=== PATIENT | male | born 1930 | race Caucasian/White ===

== ENCOUNTER → 2018-04-05 | Outpatient (CLI) | payer OTHER ==
[~2018-04-05] MED LIST: ACETAMINOPHEN325 M1; ADULT LOW DOSE81 MG PO; AMLODIPINE PO; ARIXTRA; ASPIR 8181 M1 PO; ASPIRIN EC325 M1; ATORVASTATIN CA40 MG PO; BRILINTA90 MG PO; CARVEDILOL3.125 MG PO; COLACE100 MG PO; DULCOLAX5 MG PO; FISH OIL 1,001000 M2 PO; FLOMAX PO; HYDROCHLOROTHIA25 M1 PO; LASIX 40 MG TAB40 M2 PO; LEVOTHYROXINE; LEVOTHYROXINE0.05 MG PO; LOPRESSOR25; LOPRESSOR50 PO; MACROBID 100 M100 M1 PO; NAPROSYN500 MG PO; NITROGLYCERIN0.4 MG SUBLING; NORVASC 2.5 MG2.5 M1 PO; NORVASC 2.5 MG2.5 MG PO; NORVASC 5 MG TAB5 MG PO; OXYIR 5 MG CAPSU5 M1; PERCOCET 5-3251 EACH; PLAVIX 75 MG TA75 M1 PO; POTASSIUM20 PO; PRILOSEC 20 MG20 MG PO; PRINIVIL20 MG PO; SYNTHROID75 MCG PO; TYLENOL325 MG PO; TYLOX 5-500 CA1 EACH PO; VITAMIN D1000 UNI2 PO; VITAMIN D31000 UNI2 PO
--- NOTE | 2018-04-05 12:27 | 2DMMODE ---
[place] [address] 2 D/M-MODE ECHOCARDIOGRAM Name: JOSUE NORRIS Room: [facility]#: [id number] Admission: 04/05/18 Attend Phys: Chavez Moise Discharge: Date of : 32 Date of Service: 04/05/18 1227 Report #: [id number] THIS REPORT FOR: //name// APPROVED REPORT Study performed: 04/05/2018 09:27:14 EXAM: Comprehensive 2D, Doppler, and color-flow Echocardiogram Patient Location: Out-Patient BSA: 2.10 HR: 64 bpm BP: 140/90 mmHg Other Information Study Quality: Good Indications Aortic Valve Disease Cardiomyopathy 2D Dimensions LVEF(%): 49.69 (>50%) IVSd: 13.86 (7-11mm) LVOT Diam: 17.75 (18-24mm) LVDd: 45.62 mm PWd: 10.04 (7-11mm) Ascending Ao: 39.74 (22-36mm) LVDs: 34.18 (25-40mm) Aortic Root: 29.81 mm Peña's LVEF: 49.69 % Volumes Left Atrial Volume (Systole) LA ESV Index: 43.40 mL/m2 Aortic Valve AoV Peak Jordin.: 2.08 m/s AO Peak Gr.: 17.27 mmHg LVOT Max P.98 mmHg AO Mean Gr.: 9.86 mmHg LVOT Mean P.11 mmHg LVOT Max V: 0.70 m/s AO V2 VTI: 36.85 cm LVOT Mean V: 0.49 m/s WES (VTI): 1.00 cm2 LVOT V1 VTI: 14.96 cm AI [place]: 2.19 m/s2 AI PHT: 625.68 [place] [address] 2 D/M-MODE ECHOCARDIOGRAM Name: JOSUE NORRIS Room: [facility]#: [id number] Admission: 04/05/18 Attend Phys: Chavez Moies Discharge: Date of : 32 Date of Service: 04/05/18 1227 Report #: [id number] E/A Ratio: 1.34 MV Decel. Time: 155.40 ms MV E Max Jordin.: 0.82 m/s MV PHT: 45.06 ms MVA (PHT): 4.88 cm2 TDI E/Lateral E': 11.71 E/Medial E': 27.33 Medial E' Jordin.: 0.03 m/s Lateral E' Jordin.: 0.07 m/s Pulmonary Valve PV Peak Jordin.: 0.62 m/s PV Peak Gr.: 1.53 mmHg Tricuspid Valve RAP Estimate: 5.00 mmHg TR Peak Gr.: 33.28 mmHg RVSP: 38.28 mmHg PA Pressure: 38.28 mmHg Left Ventricle The left ventricle is normal size. There is a segmental wall motion abnormality with inferobasilar akinesis. There is normal left ventricular wall thickness. Left ventricular systolic function is moderately decreased. LVEF is 35-40%. The left ventricular diastolic function is normal. Right Ventricle The right ventricle is normal size. The right ventricular systolic function is normal. Atria Left atrium is mildly dilated. The right atrium size is normal. Aortic Valve The Aortic valve is sclerotic. Mild aortic regurgitation. No hemodynamically significant valvular aortic stenosis. Mitral Valve The mitral valve is normal in structure. Mild mitral regurgitation. No evidence of mitral valve stenosis. Tricuspid Valve The tricuspid valve is normal in structure. Mild [place]icus[place] [address] 2 D/M-MODE ECHOCARDIOGRAM Name: JOSUE NORRIS Room: [facility]#: [id number] Admission: 04/05/18 Attend Phys: Chavez Moise Discharge: Date of : 32 Date of Service: 04/05/18 1227 Report #: [id number] Pulmonic Valve The pulmonary valve is normal in structure. There is no pulmonic valvular regurgitation. Great Vessels The aortic root is normal in size. IVC is normal in size and collapses with >50% inspiration Pericardium There is no pericardial effusion. <Conclusion> The left ventricle is normal size. There is normal left ventricular wall thickness. Left ventricular systolic function is moderately decreased. LVEF is 35-40%. The left ventricular diastolic function is normal. The right ventricle is normal size. Left atrium is mildly dilated. The Aortic valve is sclerotic. Mild aortic regurgitation. No hemodynamically significant valvular aortic stenosis. The mitral valve is normal in structure. Mild mitral regurgitation. IVC is normal in size and collapses with >50% inspiration There is no pericardial effusion. There is a segmental wall motion abnormality with inferobasilar akinesis. <ELECTRONICALLY SIGNED> By: Andrea Espinoza MD, FACC 04/05/18 1227 26 26 Andrea Espinoza MD, FACC /INF
== END ==
LOC: M.CRD 08:50
DX: I08.3 Combined rheumatic disorders of mitral, aortic and tricuspid valves (principal); I25.5 Ischemic cardiomyopathy; I10 Essential (primary) hypertension; I25.10 Atherosclerotic heart disease of native coronary artery without angina pectoris; I25.2 Old myocardial infarction

== ENCOUNTER → 2019-05-17 | Outpatient (CLI) | payer OTHER ==
--- NOTE | 2019-05-17 16:35 | 2DMMODE ---
[place] [address] 2 D/M-MODE ECHOCARDIOGRAM Name: JOSUE NORRIS Room: [facility]#: [id number] Admission: 05/17/19 Attend Phys: Chavez Moise Discharge: Date of : 32 Date of Service: 05/17/19 1635 Report #: [id number] THIS REPORT FOR: //name// APPROVED REPORT Study performed: 05/17/2019 14:57:10 EXAM: Comprehensive 2D, Doppler, and color-flow Echocardiogram Patient Location: Out-Patient BSA: 2.13 HR: 62 bpm BP: 140/70 mmHg Other Information Study Quality: Good Indications Aortic Valve Disease CAD 2D Dimensions IVSd: 18.63 (7-11mm) LVOT Diam: 21.94 (18-24mm) LVDd: 45.09 mm PWd: 12.06 (7-11mm) Ascending Ao: 33.27 (22-36mm) LVDs: 41.47 (25-40mm) Aortic Root: 29.43 mm Volumes Left Atrial Volume (Systole) LA ESV Index: 54.50 mL/m2 Aortic Valve AoV Peak Jordin.: 2.19 m/s AO Peak Gr.: 19.19 mmHg LVOT Max P.62 mmHg AO Mean Gr.: 13.75 mmHg LVOT Mean P.72 mmHg LVOT Max V: 0.64 m/s AO V2 VTI: 50.55 cm LVOT Mean V: 0.38 m/s WES (VTI): 1.05 cm2 LVOT V1 VTI: 14.00 cm AI [place]: 1.78 m/s2 AI PHT: 633.92 ms Mitral Valve E/A Ratio: 2.08 MV Decel. Time: 150[place]75 [place] [address] 2 D/M-MODE ECHOCARDIOGRAM Name: JOSUE NORRIS Room: [facility]#: [id number] Admission: 05/17/19 Attend Phys: Chavez Moise Discharge: Date of : 32 Date of Service: 05/17/19 1635 Report #: [id number] MV E Max Jordin.: 0.78 m/s MV PHT: 43.72 ms MVA (PHT): 5.03 cm2 TDI E/Lateral E': 13.00 E/Medial E': 26.00 Medial E' Jordin.: 0.03 m/s Lateral E' Jordin.: 0.06 m/s Pulmonary Valve PV Peak Jordin.: 0.60 m/s PV Peak Gr.: 1.45 mmHg Tricuspid Valve RAP Estimate: 5.00 mmHg TR Peak Gr.: 27.36 mmHg RVSP: 32.36 mmHg PA Pressure: 32.36 mmHg Left Ventricle The left ventricle is normal size. The basal inferior wall is severely hypokinetic. Moderate concentric left ventricular hypertrophy. Left ventricular systolic function is mildly decreased. LVEF is 40-45%. Transmitral Doppler flow pattern suggests restrictive physiology. Right Ventricle The right ventricle is normal size. The right ventricular systolic function is normal. Atria Left atrium is severely dilated. Interatrial septum not well visualized. Right atrium is mildly dilated. Aortic Valve The Aortic valve is sclerotic. Mild aortic regurgitation. Moderate aortic stenosis. Mitral Valve The mitral valve is normal in structure. Mild mitral regurgitation. No evidence of mitral valve stenosis. Tricuspid Valve The tricuspid valve is normal in structure. Trace tricuspid regurgitation. The RVSP is 30-35 mmHg. Pulmonic Valve The pulmonary valve is normal in structure[place] [address] 2 D/M-MODE ECHOCARDIOGRAM Name: JOSUE NORRIS Win Room: [facility]#: [id number] Admission: 05/17/19 Attend Phys: Chavez Moise Discharge: Date of : 32 Date of Service: 05/17/19 1635 Report #: [id number] regurgitation. Great Vessels The aortic root is normal in size. Aortic arch is not visualized. IVC is not visualized. Pericardium There is no pericardial effusion. <Conclusion> The left ventricle is normal size. Moderate concentric left ventricular hypertrophy. Left ventricular systolic function is mildly decreased. LVEF is 40-45%. Transmitral Doppler flow pattern suggests restrictive physiology. Left atrium is severely dilated. Right atrium is mildly dilated. The Aortic valve is sclerotic. Mild aortic regurgitation. Moderate aortic stenosis. Mild mitral regurgitation. Trace tricuspid regurgitation. The RVSP is 30-35 mmHg. <ELECTRONICALLY SIGNED> By: Ananda Kang MD, [facility] 05/17/19 1635 1635 1635 Ananda Kang MD, FACC /INF
== END ==
LOC: M.CRD 05-16 14:00
DX: I08.0 Rheumatic disorders of both mitral and aortic valves (principal); I50.43 Acute on chronic combined systolic (congestive) and diastolic (congestive) heart failure; I25.5 Ischemic cardiomyopathy; I25.10 Atherosclerotic heart disease of native coronary artery without angina pectoris

== ENCOUNTER → 2019-11-15 | Outpatient (CLI) | payer OTHER ==
[2019-11-15 15:34] LABS: ABSOLUTE EOSINOPHILS 0.1 thou/uL (0.0-0.7); ABSOLUTE LYMPHOCYTES 1.3 thou/uL (0.8-5.3); ABSOLUTE NEUTROPHILS 3.8 thou/uL (1.6-8.1); BASOPHILS 0.4 %; EOSINOPHILS 1.6 %; HEMATOCRIT 38.5 % (42.0-52.0); HEMOGLOBIN 12.8 gm/dL (14.0-18.0); LYMPHOCYTES 20.5 %; MCH 32.4 pg (26.0-34.0); MCHC 33.2 g/dL (28.0-37.0); MCV 97.3 fL (80.0-100.0); MONOCYTES 16.3 %; MPV 8.5 fl. (7.2-11.1); NUCLEATED RBCS 0 /100WBC; PLATELET COUNT* 214 thou/uL (150-400); POLYS 61.2 %; RBC 3.95 mil/uL (4.50-6.00); RDW-CV 14.9 % (10.5-14.5); WBC 6.2 thou/uL (4.0-11.0)
[2019-11-15 15:57] LABS: CALCIUM 8.7 mg/dL (8.5-10.1); CREATININE 2.5 mg/dL (0.6-1.3); POTASSIUM 3.5 mmol/L (3.5-5.1)
== END ==
LOC: M.RAD 15:09
PROVIDERS: Registered Nurse
DX: J98.4 Other disorders of lung (principal); I77.810 Thoracic aortic ectasia; I51.7 Cardiomegaly

== ENCOUNTER 2020-07-04 09:46 | Emergency (ER) | payer OTHER ==
[~2020-07-04] VITALS: Ht 182.9 cm; Wt 113.4 kg
--- NOTE | 2020-07-04 16:19 | EKG ---
[place] [address] ELECTROCARDIOGRAM REPORT Name: JOSUE NORRIS Room: [facility]#: [id number] Admission: 07/04/20 Attend Phys: Discharge: Date of : 32 Date of Service: 07/04/20 0941 Report #: [id number] THIS REPORT FOR: //name// [facility] ED Test Date: 2020-07-04 Test Time: 09:41:18 Pat Name: JOSUE NORRIS Department: Room: Gender: Software Writer: : 1930 Requested By: Yasir Clarke Order Number: [id number] Reading MD: Andrea Espinoza Measurements Intervals [place] Rate: 48 P: 121 IA: 279 QRS: 99 QRSD: 114 T: -85 QT: 450 QTc: 402 Interpretive Statements Bradycardic rhythm of uncertain etiology Atrial premature complex Nonspecific interventricular conduction delay Nonspecific repol abnormality, diffuse leads Compared to ECG 08/27/2017 14:23:13 Heart rate has decreased and atrial mechanism is unclear ST (T wave) deviation now present Sinus tachycardia no longer present Electronically Signed On 07-04-2020 16:19:32 CDT by Andrea Espinoza [email or web address] <ELECTRONICALLY SIGNED> By: Andrea Espinoza MD, FAC 07/04/20 1619 0 0 Andrea Espinoza MD, [facility] /EPI
== END 2020-07-04 10:05 ==
LOC: M.ERS 09:46
DX: I46.9 Cardiac arrest, cause unspecified (principal); K21.9 Gastro-esophageal reflux disease without esophagitis; E03.9 Hypothyroidism, unspecified; I25.2 Old myocardial infarction; I13.0 Hypertensive heart and chronic kidney disease with heart failure and stage 1 through stage 4 chronic kidney disease, or unspecified chronic kidney disease; N18.9 Chronic kidney disease, unspecified; I50.9 Heart failure, unspecified; Z91.040 Latex allergy status; Z79.899 Other long term (current) drug therapy; Z79.82 Long term (current) use of aspirin; Z98.890 Other specified postprocedural states